=== PATIENT | female | born 1995 | race Caucasian/White ===

== ENCOUNTER 2018-01-27 07:54 | Observation (INO) | payer BC, OTHER, MEDICAID ==
[~2018-01-27] VITALS: Ht 149.9 cm; Wt 86.4 kg
[2018-01-27 08:00] VITALS: BP 110/64
[2018-01-27] MEDS ORDERED: FERR325T6 MT (11:16)
[2018-01-27] MEDS ORDERED: FOLI-43 MT (11:16)
[2018-01-27] MEDS ORDERED: PREN1TAB78 MT (11:16)
== END 2018-01-27 12:00 | disposition home or self-care (01) ==
LOC: EDBD 07:54 → ER 08:04 → L&D 08:06
PROVIDERS: ADMIT Obstetrics & Gynecology; ATTEND Obstetrics & Gynecology
DX: Z04.1 Encounter for examination and observation following transport accident (principal); Z3A.39 39 weeks gestation of pregnancy
CPT/HCPCS: 76815; 76818; 99281; G0378